=== PATIENT | female | born 1995 | race Two or more races ===

== ENCOUNTER 2020-09-07 10:46 | Inpatient (IN) | payer OTHER ==
[~2020-09-07] VITALS: Ht 167.6 cm; Wt 78.0 kg
[2020-09-07] MEDS ORDERED: NEWBORN KIT ONE (10:59)
[2020-09-07] MEDS ORDERED: LIDOCAINE 1%, 20ML ONE (10:59)
[2020-09-07] MEDS ORDERED: MISOPROSTOL 200 MCG TABLET ONE (11:00)
[2020-09-07] MEDS ORDERED: OXYTOCIN 30U/ 0.9% NaCL 500ML 500 ML ONE ×2 (11:00→12:32)
[2020-09-07] MEDS ORDERED: SODIUM CITRATE/CITRIC ACID 30 ML UDC PO PRN (11:00)
[2020-09-07] MEDS ORDERED: FENTANYL PF 100 MCG/2ML IV PRN (11:00)
[2020-09-07] MEDS ORDERED: FENTANYL PF 100 MCG/2ML IVPush PRN (11:00)
[2020-09-07] MEDS ORDERED: METOCLOPRAMIDE 5 MG/ML, 2ML IVPush PRN (11:00)
[2020-09-07] MEDS ORDERED: OXYTOCIN 30U/ 0.9% NaCL 500ML 500 ML IV ONE (11:00)
[2020-09-07] MEDS ORDERED: TERBUTALINE 1 MG/ML, 1ML IVPush PRN (11:00)
[2020-09-07] MEDS ORDERED: TERBUTALINE 1 MG/ML, 1ML SQ PRN (11:00)
[2020-09-07] MEDS: PLEASE ENTER ALLERGIES MC SCH ×2 (11:30→17:59)
[2020-09-07] MEDS ORDERED: PLEASE ENTER HEIGHT AND WEIGHT MC SCH (11:30)
[2020-09-07] MEDS ORDERED: DOCUSATE 100 MG CAPSULE PO PRN (12:00)
[2020-09-07] MEDS ORDERED: SIMETHICONE 80 MG CHEW TAB PO PRN (12:00)
[2020-09-07] MEDS ORDERED: ACETAMINOPHEN 325 MG TABLET PO PRN ×2 (12:00)
[2020-09-07] MEDS ORDERED: MISOPROSTOL 200 MCG TABLET PR PRN (12:00)
[2020-09-07] MEDS ORDERED: IBUPROFEN 600 MG TABLET ONE (12:07)
[2020-09-07] MEDS: IBUPROFEN 600 MG TABLET PO PRN ×2 (12:10→17:58)
[2020-09-07] MEDS ORDERED: OXYcodone/APAP 5/325MG TABLET ONE (12:32)
[2020-09-07] MEDS: OXYTOCIN 30U/ 0.9% NaCL 500ML 500 ML IV SCH ×2 (12:34→22:00)
[2020-09-07] MEDS ORDERED: HYDROcodone/APAP 5/325 TABLET ONE (12:36)
[2020-09-07 12:39] LABS: BASOPHILS % (AUTO) 1 % (0-1); EOSINOPHILS % (AUTO) 0 % (1-7); LYMPHOCYTES % (AUTO) 9 % (22-44); MEAN CORPUSCULAR HEMOGLOBIN 28.8 pg (27.0-34.8); MEAN CORPUSCULAR HGB CONC 33.3 g/dL (32.4-35.8); MEAN PLATELET VOLUME 9.6 fL (7.4-10.4); MONOCYTES % (AUTO) 5 % (2-9); NEUTROPHILS % (AUTO) 85 % (42-75); PLATELET COUNT 183 x10^3/uL (130-400); RED CELL DISTRIBUTION WIDTH 14.3 % (9.6-15.2)
[2020-09-07] MEDS: HYDROcodone/APAP 5/325 TABLET PO PRN (12:39)
[2020-09-07 12:46] LABS: MD NO
[2020-09-07 14:00] VITALS: BP 99/63
[2020-09-07 20:00] VITALS: BP 123/79
[2020-09-07 20:45] LABS: BASOPHILS % (AUTO) 0 % (0-1); EOSINOPHILS % (AUTO) 0 % (1-7); LYMPHOCYTES % (AUTO) 13 % (22-44); MD NO; MEAN CORPUSCULAR HEMOGLOBIN 28.8 pg (27.0-34.8); MEAN CORPUSCULAR HGB CONC 33.2 g/dL (32.4-35.8); MEAN PLATELET VOLUME 9.8 fL (7.4-10.4); MONOCYTES % (AUTO) 5 % (2-9); NEUTROPHILS % (AUTO) 82 % (42-75); PLATELET COUNT 177 x10^3/uL (130-400); RED BLOOD COUNT 4.19 x10^6/uL (3.82-5.3); RED CELL DISTRIBUTION WIDTH 14.2 % (9.6-15.2)
[2020-09-08] VITALS: BP 116/76
[2020-09-08] MEDS: IBUPROFEN 600 MG TABLET PO PRN ×2 (00:19→09:27)
[2020-09-08] MEDS: HYDROcodone/APAP 5/325 TABLET PO PRN (00:19)
[2020-09-08] MEDS: PLEASE ENTER ALLERGIES MC SCH ×2 (03:30→11:30)
[2020-09-08 04:00] VITALS: BP 109/69
[2020-09-08 07:30] VITALS: BP 115/75
[2020-09-08] MEDS: OXYTOCIN 30U/ 0.9% NaCL 500ML 500 ML IV SCH (08:00)
[2020-09-08] MEDS ORDERED: PRENATAL VIT/IRON/FA 1 EACH TABLET PO SCH (09:00)
[2020-09-08] MEDS ORDERED: IBUP-1222 PO (12:02)
== END 2020-09-08 13:20 | disposition home or self-care (01) | DRG 807 ==
LOC: LDOP 10:46 → LDIP 11:08 → 2NW 14:04
PROVIDERS: ADMIT Obstetrics & Gynecology; ATTEND Obstetrics & Gynecology
PROC: 10E0XZZ Delivery of Products of Conception, External Approach (ICD-10-PCS; principal; 2020-09-07)
PROC: 10907ZC Drainage of Amniotic Fluid, Therapeutic from Products of Conception, Via Natural or Artificial Opening (ICD-10-PCS; 2020-09-07)
PROC: 0HQ9XZZ Repair Perineum Skin, External Approach (ICD-10-PCS; 2020-09-07)
DX: O62.3 Precipitate labor (principal); Z37.0 Single live birth; Z3A.39 39 weeks gestation of pregnancy; Z20.828 Contact with and (suspected) exposure to other viral communicable diseases; Z88.8 Allergy status to other drugs, medicaments and biological substances; O70.0 First degree perineal laceration during delivery
CPT/HCPCS: 36415; 85025; 86592; 86850; 86900; 87635; G0378; J2590